=== PATIENT | male | born 1945 | race Caucasian/White ===

== ENCOUNTER 2020-05-04 05:46 | Day surgery (SDC) | payer MEDICARE, OTHER ==
[2020-05-03 13:51] VITALS: BMI 38.7
[2020-05-04] MEDS ORDERED: AFRIN NASAL MIST 15 ML BOT ONE ×2 (06:16→06:46)
[2020-05-04] MEDS ORDERED: Midazolam HCl 2 mg/2 ml Vial ONE (06:19)
[2020-05-04] MEDS ORDERED: Fentanyl 250 MCG/5 ML VIAL ONE (06:19)
[2020-05-04] MEDS ORDERED: Lidocaine 4% Topical Sol 50 ML BOT ONE (06:20)
[2020-05-04] MEDS ORDERED: Bacitracin Zinc Ointment 30 gm TUBE ONE (06:46)
[2020-05-04] MEDS ORDERED: Lidocaine 1% w/Epinephrine 1:100K 20 ML VIAL ONE (06:46)
[2020-05-04] MEDS ORDERED: methylPREDNISolone Acetate 40 mg/ml Vial ONE (07:19)
[2020-05-04] MEDS ORDERED: Lidocaine 1% PF 5 ML VIAL ONE (09:09)
[2020-05-04] MEDS ORDERED: PROPOFOL 200 MG/20 ML VIAL ONE (09:09)
[2020-05-04] MEDS ORDERED: EPHEDRINE 25 MG/5 ML SYRINGE ONE (09:09)
[2020-05-04] MEDS ORDERED: Glycopyrrolate 0.2 MG/ML 5 ML SYRINGE ONE (09:09)
[2020-05-04] MEDS ORDERED: Dexamethasone 20 MG/5 ML VIAL ONE (09:09)
[2020-05-04] MEDS ORDERED: Ondansetron PF 4 MG/2 ML Vial ONE (09:09)
[2020-05-04] MEDS ORDERED: Rocuronium Bromide 10 MG/ML (10ML VIAL) ONE (09:09)
[2020-05-04] MEDS ORDERED: Hydrocodone-Acetamin 15 ML UDCUP ONE (10:12)
--- NOTE | 2020-05-05 10:18 | OP ---
DATE OF PROCEDURE: 05/04/2020 PREOPERATIVE DIAGNOSES: 1. Chronic rhinosinusitis. 2. Nasal polyposis. 3. Nasal septal deviation. 4. Bilateral inferior turbinate hypertrophy. 5. Bilateral middle turbinate bart bullosa. 6. Nasal obstruction. POSTOPERATIVE DIAGNOSES: 1. Chronic rhinosinusitis. 2. Nasal polyposis. 3. Nasal septal deviation. 4. Bilateral inferior turbinate hypertrophy. 5. Bilateral middle turbinate bart bullosa. 6. Nasal obstruction. PROCEDURES PERFORMED: 1. Bilateral endoscopic sinus surgery, total ethmoidectomies including sphenoidotomies with removal of tissue. 2. Bilateral endoscopic sinus surgery, maxillary antrostomy with removal of tissue. 3. Bilateral endoscopic sinus surgery, frontal sinus exploration. 4. Nasoseptoplasty. 5. Bilateral inferior turbinate submucosal resection. 6. Bilateral endoscopic resection of middle turbinate bart bullosa. ESTIMATED BLOOD LOSS: 50 mL. COMPLICATIONS: None. ANESTHESIA: GETA. DESCRIPTION OF PROCEDURE: NASOSEPTOPLASTY AND BILATERAL INFERIOR TURBINATE SUBMUCOSAL RESECTION: Patient was taken to the operating room and placed supine on the table. General endotracheal anesthesia was obtained by the anesthesia staff. Then 1% lidocaine with 1:100,000 epinephrine was injected into the nasal septum as well as the inferior turbinates. The patient was prepped and draped in standard surgical fashion. The Afrin pledgets were then removed. A Kihei incision was made on the left nasal septum. Submucoperichondrial dissection was performed bilaterally of the deviated portions of the septum, which included the maxillary crest and the crest deviation, as well as the mid portion of the septum. Cartilage and bony deviation were removed, leaving a generous caudal and dorsal strut. Any straight pieces of cartilage were then placed within the cartilage press, pressed, straightened, and then placed between the mucoperichondrial flaps, which were then closed using a 4-0 gut stitch. The inferior turbinates were then punctured with the submucosal Coblation machine, and 3 separate coblations were delivered to the anterior inferior portion of the inferior turbinates. Following this, the nasal cavity was irrigated. All debris was removed. An orogastric tube was placed. Gastric contents and Smith splints were then placed in the nasal cavity and sutured with a 3-0 silk stitch. Following this, the 0-degree endoscope was advanced in the middle turbinates, and middle turbinates were gently medialized. The bart bullosa deformities of the middle turbinates were then addressed using the 0-degree microdebrider, which was used to resect and shave the lateral portion of the middle turbinate bilaterally. This was done dependent direction allowing for adequate drainage of the middle turbinates. Following this, the uncinate process was identified and was anteriorly fractured using a ball-ended probe and following this, a 0-degree microdebrider and the up-biting Blakesley forceps were used to remove the uncinate process bilaterally. Following this, the natural maxillary sinus ostia were identified using the ball-ended probe and the ball-ended probe was used to gently widen the maxillary sinus ostia, and then the 0-degree microdebrider and straight Blakesley forceps were used to further widen the maxillary antrostomy bilaterally. Thick mucoid secretions and nasal polyps were removed from the maxillary sinus bilaterally. Using the curved suction following this, the ethmoidal bulla was identified and was punctured on its medial and inferior aspect bilaterally and was removed using the 0-degree microdebrider. Following this, the grand lamella was identified and was punctured into the posterior ethmoidal cells using the 0-degree microdebrider bilaterally. Working from posteriorly to anteriorly, the ethmoidal cells were opened. Nasal polyps, specifically a purulent polyp was almost in inverted mucocele appearance with a contained purulent debris was encountered in the ethmoidal sinuses and obstructing the sphenoid sinus ostia bilaterally. These were removed using forceps and sent for pathological analysis as well as cultures. Following this, the sphenoid sinus ostia were identified through the previous ethmoidectomies, and a sphenoidotomy was created bilaterally and was widened medially and inferiorly using the 0-degree microdebrider bilaterally. Purulence and remnant of the ethmoidal polyps were removed from the sphenoid sinuses using straight Blakesley forceps. Following this, a 45-degree endoscope along with a 40-degree microdebrider blade were used to further identify the frontal sinus ostia, and the 40-degree microdebrider blade and up-biting Blakesley forceps were used to widen the frontal sinus ostia bilaterally. Following this, the nasal cavity was irrigated. NasoPore packing was placed within the middle meatus. Smith splints were placed and secured. The patient tolerated the procedure well. Job ID: [id number]
[2020-05-06 13:40] LABS: Fungus Stain Final report (.)
== END 2020-05-04 10:45 | disposition home or self-care (01) ==
LOC: SDC 05:46
PROVIDERS: ATTEND Otolaryngology Plastic Surgery within the Head & Neck
PROC: 099R8ZZ Drainage of Left Maxillary Sinus, Via Natural or Artificial Opening Endoscopic (ICD-10-PCS; principal; 2020-05-04)
PROC: 099Q8ZZ Drainage of Right Maxillary Sinus, Via Natural or Artificial Opening Endoscopic (ICD-10-PCS; 2020-05-04)
PROC: 09BT8ZZ Excision of Left Frontal Sinus, Via Natural or Artificial Opening Endoscopic (ICD-10-PCS; 2020-05-04)
PROC: 09BS8ZZ Excision of Right Frontal Sinus, Via Natural or Artificial Opening Endoscopic (ICD-10-PCS; 2020-05-04)
PROC: 09BL8ZZ Excision of Nasal Turbinate, Via Natural or Artificial Opening Endoscopic (ICD-10-PCS; 2020-05-04)
PROC: 09BM8ZZ Excision of Nasal Septum, Via Natural or Artificial Opening Endoscopic (ICD-10-PCS; 2020-05-04)
PROC: 099X8ZZ Drainage of Left Sphenoid Sinus, Via Natural or Artificial Opening Endoscopic (ICD-10-PCS; 2020-05-04)
PROC: 099W8ZZ Drainage of Right Sphenoid Sinus, Via Natural or Artificial Opening Endoscopic (ICD-10-PCS; 2020-05-04)
PROC: 09BV8ZZ Excision of Left Ethmoid Sinus, Via Natural or Artificial Opening Endoscopic (ICD-10-PCS; 2020-05-04)
PROC: 09BU8ZZ Excision of Right Ethmoid Sinus, Via Natural or Artificial Opening Endoscopic (ICD-10-PCS; 2020-05-04)
DX: J32.9 Chronic sinusitis, unspecified (principal); J34.2 Deviated nasal septum; J34.3 Hypertrophy of nasal turbinates; J33.9 Nasal polyp, unspecified; J34.89 Other specified disorders of nose and nasal sinuses; J30.9 Allergic rhinitis, unspecified; H65.01 Acute serous otitis media, right ear; Z79.4 Long term (current) use of insulin; Z79.82 Long term (current) use of aspirin; Z79.899 Other long term (current) drug therapy
CPT/HCPCS: 87070; 87077; 87102; 87186; 87205; 87206; 88304; J1100; J2250; J2405; J2704; J2920; J3010